=== PATIENT | male | born 1975 | race Hispanic/Latino ===

== ENCOUNTER 2017-10-02 19:23 | Emergency (ER) | payer SELFPAY ==
--- NOTE | 2017-10-02 19:58 | RAD ---
RIGHT FOOT THREE VIEWS: 10/02/17 HISTORY: Dropped heavy pipe on right foot at work. Pain. COMPARISON: None. FINDINGS: Lisfranc alignment is maintained. Joint spaces are preserved. No fracture. No cortical irregularity o r periosteal reaction. Mild soft tissue swelling in the midfoot, along the dorsal soft tissues. IMPRESSION: Soft tissue swelling. No fracture. POS: [facility]
== END 2017-10-02 23:05 | disposition home or self-care (01) ==
LOC: ERS 19:23
DX: S90.31XA Contusion of right foot, initial encounter (principal); W20.8XXA Other cause of strike by thrown, projected or falling object, initial encounter

== ENCOUNTER 2017-11-02 22:23 | Emergency (ER) | payer SELFPAY ==
[2017-11-02] MEDS ORDERED: Proparacaine 0.5% Opth 15 ML BOT ONE (23:22)
[2017-11-02] MEDS ORDERED: Ibuprofen 200 MG TAB ONE (23:22)
--- NOTE | 2017-11-02 23:22 | RAD ---
THREE VIEWS RIGHT FOOT: 11/02/17 HISTORY: Right foot pain. COMPARISON: 10/02/17. FINDINGS: The Lisfranc joint is normally aligned. There is no fracture or dislocation involving the right foot . There has been no interval change compared to the prior exam. IMPRESSION: No acute osseous abnormality. POS: [facility]
--- NOTE | 2017-11-02 23:24 | RAD ---
THREE VIEWS LEFT HAND 11/02/17 HISTORY: Left hand pain. FINDINGS: No acute fracture or dislocation seen involving the left hand. There is a small rounded circumscribed lucency within the lateral aspect of the distal ulna which has a nonaggressive appearance and may re present small cysts. No other osseous abnormality. IMPRESSION: No acute osseous abnormality left hand. POS: [facility]
== END 2017-11-03 00:47 | disposition home or self-care (01) ==
LOC: ERS 22:23
DX: M79.671 Pain in right foot (principal); M79.642 Pain in left hand